=== PATIENT | male | born 1965 | race Caucasian/White ===

== ENCOUNTER 2023-01-22 13:00 | Day surgery (SDC) | payer OTHER, SELFPAY ==
[2023-01-22 13:17] VITALS: BP 120/82; PULSE 71; RESP 16; TEMP 35.9; O2SAT 97; BMI 27.3
[2023-01-22] MEDS: LACTATED RINGERS 1,000 ML 42 ML IV (13:40)
[2023-01-22 13:45] LABS: COVID19 -Nasal RAPID Negative (Negative)
--- NOTE | 2023-01-22 13:46 | PM.HP.1 ---
History of Present Illness History of Present Illness Date Patient Seen: 01/22/23 Time Patient Seen: 13:46 Chief complaint: Dx Colonoscopy w/poss bx Narrative: 58-year-old male with intermittent rectal bleeding. I reviewed the recent office note by Rik Larsen. No significant changes. [facility] Medical History (Updated 01/01/23 @ 14:17 by Eliel Kumari MD) Rectal Hemorrhage Social History household members: none Smoking Status: Never smoker Meds Home Medications and Allergies Allergies Allergy/AdvReac Type Severity Reaction Status Date / Time No Known Drug Allergies Allergy Unverified 01/01/23 13:26 Review of Systems Review of Systems ROS: Yes All systems reviewed with the patient and are negative except as otherwise documented Exam Vital Signs (past 8 hours): - 01/22/23 13:17 Temperature 96.6 F L Pulse Rate 71 Respiratory Rate 16 Blood Pressure 120/82 Pulse Oximetry 97 Oxygen Delivery Method Room Air Oxygen Delivery Method Room Air Const General: cooperative HENMT Head: normal to inspection Eyes General: appearance normal, both eyes and all related structures Neck Neck: normal visual inspection Chest Chest: normal inspection of the chest Resp Effort & Inspection: normal respiratory effort Cardio Rate: regular rate GI Inspection: normal to inspection Skin General: no rashes or lesions noted Neuro General: patient alert and patient awake Extrem General: normal to inspection and no pedal edema Psych Appearance: grossly normal Objective Labs Labs: Laboratory Results - last 24 hr 01/22/23 13:28 SARS-CoV-2 (PCR) Negative Assessment & Plan Assessment & Plan narrative: 58-year-old male with intermittent rectal bleeding. Colonoscopy is pursued today.
--- NOTE | 2023-01-22 13:47 | PM.PREOP ---
Pre-operative Note Interval Note History & Physical reviewed/Exam performed by Physician: Yes Changes to H&P: No ASA Class (for procedural sedation): I
[2023-01-22 14:49] VITALS: BP 119/75; PULSE 72; RESP 12; TEMP 36.2; O2SAT 96
--- NOTE | 2023-01-22 14:49 | PM.OP.COLON ---
Operative Date/Time/Diagnoses Date of procedure: 01/22/23 Time of procedure: 14:49 Pre-op diagnosis: Rectal bleeding Post-op diagnosis: same Procedure & Clinicians Study performed: Colonoscopy Same procedure as scheduled: Yes Indications: Rectal bleeding Surgeon: Ryan Castano Procedure Notes SCOAP/Timeout: Done Procedure in detail: After the risks and benefits were explained, written and verbal informed consent was obtained. The patient was brought into the procedure room and placed into the left lateral decubitus position. Please see anesthesia notes for sedation details. Digital rectal examination was accomplished. The scope was introduced into the patient and advanced under direct visualization to the cecum as identified by the appendiceal orifice and ileocecal valve. The scope was slowly withdrawn to carefully examine the mucosa for any defects or lesions. Comprehensive imaging was accomplished throughout the rectum including the dentate line. The colon was decompressed, the scope was then removed from the patient who tolerated the procedure well. Adult colonoscope Bowel prep adequate Scope withdrawal time: 8 minutes Sedation minutes: 15 Specimen(s): none sent Complications: none Impression: There were scattered diverticula all through the sigmoid colon. No significant polyps mass lesions or inflammatory features identified throughout. Patient had grade 2 internal hemorrhoids. Endoscopic diagnosis 1. Grade 2 hemorrhoids (visually speaking, the most likely source for bleeding last month). 2. Diverticulosis Post-procedure Plan for aftercare: Repeat colonoscopy for colon cancer screening in 10 years. Sooner should symptoms warrant an earlier exam. Disposition: PACU
[2023-01-22 14:53] VITALS: BP 111/62; PULSE 71; RESP 15; O2SAT 95
[2023-01-22 14:58] VITALS: BP 115/68; PULSE 65; RESP 10; O2SAT 95
[2023-01-22 15:03] VITALS: BP 115/68; PULSE 74; RESP 15; O2SAT 98
== END 2023-01-22 15:23 | disposition home or self-care (01) ==
PROVIDERS: PCP Pediatrics; Referring Provider Internal Medicine Gastroenterology; Visit Provider Internal Medicine Gastroenterology
PROC: 0DJD8ZZ Inspection of Lower Intestinal Tract, Via Natural or Artificial Opening Endoscopic (ICD-10-PCS; CPT 45378; principal; 2023-01-22 14:00)
DX: K62.5 Hemorrhage of anus and rectum (principal); K57.30 Diverticulosis of large intestine without perforation or abscess without bleeding; K64.1 Second degree hemorrhoids
CPT/HCPCS: 45378; 87635; J2704